=== PATIENT | female | born 1970 | race Caucasian/White ===

== ENCOUNTER 2017-08-03 10:00 | Outpatient (CLI) | payer OTHER ==
--- NOTE | 2017-08-05 18:14 | MRI Report ---
EXAM: RIGHT HIP MRI WITHOUT CONTRAST EXAM DATE: 08/03/2017 11:02 AM. CLINICAL HISTORY: P pn in unspecified hip. Patient reports right hip pain for several months. History of fall a year ago. COMPARISON: None. TECHNIQUE: Multiplanar, multisequence T1-weighted and fluid-sensitive, small [id number] sequences of the hip and large [id number] sequences of the pelvis without contrast. Other: None. FINDINGS: Bones: No fractures or subluxations. No marrow edema or bone lesions. Right Hip: No acetabular retroversion. Mildly decreased offset at the anterolateral aspect femoral he ad and neck junction. Minimal femoral head and neck osteophytes. No effusion or loose bodies. Ligamen loi teres is intact. Minimal shallow partial-thickness cartilage loss at the superior aspect of the joint. No focal full- thickness defect. Shallow partial-thickness undersurface tear anterior labrum at the 3 o'clock positi on (oblique axial image 20 of series 601). Other Joints: Mild degenerative disk and facet changes partially visualized lower lumbar spine. Sacro iliac joints and pubic symphysis are unremarkable. No joint effusion at the left hip. Evaluation of t he left hip cartilage and labrum limited on these rebollar of view. Musculature: No fatty atrophy. Subtle edema at the right gluteus minimus and medius myotendinous junc tions. Mild thickening and heterogeneity of the right gluteus minimus and medius tendons. Possible p artial-thickness tearing at the gluteus medius tendon laterally. Hamstring origins are unremarkable. Ischiofemoral space is within normal limits. The ischiofemoral sp parisa is normal. Pelvic Cavity: Visualized bowel is unremarkable. Status post hysterectomy. 2.9 cm cystic focus in the region of the right adnexa. No free fluid. Other: The visualized sciatic nerves are unremarkable. The subcutaneous tissues are unremarkable. IMPRESSION: 1. Partial-thickness undersurface tear anterior aspect right labrum. 2. Minimal degenerative changes right hip. 3. Mildly decreased offset anterolateral aspect right femoral head and neck junction. This can be see n in the setting of cam-type femoroacetabular impingement. 4. Mild right gluteus minimus and medius tendinopathy with possible partial thickness tearing gluteus medius tendon. 5. Mild degenerative disk and facet changes partially visualized lower lumbar spine. 6. A 2.9 cm cystic focus in the right adnexa. This is nonspecific and may be physiologic. [facility] MUSCULOSKELET[facility] RADIOLOGY SECTION Referring Provider Line: [phone] SITE ID: [id number]
== END 2017-08-03 10:01 | disposition home or self-care (01) ==
LOC: DI 10:00
PROVIDERS: ATTEND Family Medicine
DX: S73.191A Other sprain of right hip, initial encounter (principal); M67.853 Other specified disorders of tendon, right hip; M51.36 Other intervertebral disc degeneration, lumbar region; M47.9 Spondylosis, unspecified